=== PATIENT | female | born 1965 | race Caucasian/White ===

== ENCOUNTER 2024-03-04 06:30 | Emergency (ER) | payer BC ==
[~2024-03-04] VITALS: Ht 165.1 cm; Wt 54.4 kg
[2024-03-04 06:41] VITALS: BP 117/80; PULSE 89; RESP 14; TEMP 98.6; O2SAT 99
[2024-03-04] MEDS: MORPHINE SULFATE 4 MG/ML SYR IVP ONE (07:19)
[2024-03-04] MEDS: ONDANSETRON 4 MG/2 ML VIAL IVP ONE (07:19)
[2024-03-04] MEDS: LORazepam 2 MG/ML VIAL IVP ONE (07:45)
[2024-03-04 08:22] LABS: BASOPHILS % (AUTO) 0.1 % (0.0-2.0); EOSINOPHILS % (AUTO) 0.2 % (0.0-4.0); HEMATOCRIT 30.6 % (36-48); HEMOGLOBIN 10.4 g/dL (12.0-16.0); LYMPHOCYTES # (AUTO) 1.3 K/uL (2.5-16.5); MEAN CORPUSCULAR HEMOGLOBIN 32 pg (27-31); MEAN CORPUSCULAR HGB CONC 34 g/dL (33-37); MEAN CORPUSCULAR VOLUME 93.2 fL (80-94); MONOCYTES # (AUTO) 0.5 K/uL (0.8-1.0); NEUTROPHILS # (AUTO) 6.4 K/uL (1.8-7.7); NEUTROPHILS % (AUTO) 77.7 % (42.2-75.2); PLATELET COUNT (AUTO) 290 K/uL (140-450); RED BLOOD CELL COUNT(AUTO) 3.29 MIL/uL (4.20-5.40); WHITE BLOOD COUNT (AUTO) 8.3 K/uL (4.8-10.8)
[2024-03-04 08:36] LABS: ANION GAP 12.1 (8-16); CALCIUM 8.9 mg/dL (8.5-10.1); CARBON DIOXIDE 27.4 mmol/L (21-32); CREATININE 0.8 mg/dL (0.6-1.3); POTASSIUM 3.5 mmol/L (3.5-5.1)
[2024-03-04 08:40] LABS: ALBUMIN 3.7 g/dL (3.4-5.0); BILIRUBIN,DIRECT 0.1 mg/dL (0.0-0.3); TOTAL BILIRUBIN 0.4 mg/dL (0.0-1.0); TOTAL PROTEIN, SERUM 6.7 g/dL (6.4-8.2)
[2024-03-04 10:03] VITALS: TEMP 97.7
[2024-03-04] MEDS ORDERED: ONDA8TAB87 PO (10:26)
[2024-03-04] MEDS ORDERED: LOPE-289 PO (10:26)
[2024-03-04 10:58] VITALS: BP 109/53; PULSE 76; RESP 18; O2SAT 97
[2024-03-04] MEDS: ONDANSETRON 4 MG ODT PO ONE (11:17)
== END 2024-03-04 10:35 | disposition home or self-care (01) ==
LOC: MED 06:30
DX: R10.84 Generalized abdominal pain (principal); R11.2 Nausea with vomiting, unspecified; R19.7 Diarrhea, unspecified; F12.90 Cannabis use, unspecified, uncomplicated; Z90.710 Acquired absence of both cervix and uterus; Z85.3 Personal history of malignant neoplasm of breast; Z88.0 Allergy status to penicillin
CPT/HCPCS: 36415; 74176; 80048; 80076; 83690; 85025; 96374; 96375; 99285; J2060; J2270; J2405; Q0162